=== PATIENT | female | born 1950 | race African-American/Black ===

== ENCOUNTER → 2018-04-08 | Outpatient (CLI) | payer MEDICARE, BC ==
--- NOTE | 2018-04-08 08:52 | PCVCIMAG ---
EXAM: BILATERAL CAROTID DUPLEX INDICATION: Carotid Occlusive Disease. FINDINGS: Doppler Measurements (centimeters per second): RIGHT: Peak CCA-92, Peak ECA-115, Diastolic ICA-30, Peak ICA-94, ICA/CCA Ratio-1.0. LEFT: Peak CCA-95, Peak ECA-75, Diastolic ICA-41, Peak ICA-140, ICA/CCA Ratio-1.5. RIGHT CAROTID: The carotid bulb has mild plaque. The proximal internal carotid artery shows <40% stenosis. The common carotid artery shows no significant stenosis. The external carotid artery shows no significant stenosis. LEFT CAROTID: The carotid bulb has moderate plaque. The proximal internal carotid artery shows 50% stenosis. The common carotid artery shows no significant stenosis. The external carotid artery shows no significant stenosis. Antegrade flow in both vertebral arteries. IMPRESSION: <40% stenosis of the right internal carotid artery with mild plaque. 50% stenosis of the left internal carotid artery with moderate plaque. LOC:[place] [id number]
--- NOTE | 2018-04-08 11:44 | PCVCIMAG ---
EXAM: AORTOILIAC DUPLEX INDICATION: Peripheral arterial disease previous aortobifemoral bypass. FINDINGS: AORTA: Postsurgical changes of aortobifemoral bypass appear intact. Suprarenal aorta measures maximum diameter of 2.4 cm. There is not a fusiform infrarenal aortic aneurysm. The infrarenal aorta measures maximum diameter of 2.5 cm. No aortic stenosis. The right and left iliac limbs of the bypass are patent and of normal caliber. IMPRESSION: Intact aortobifemoral bypass remains patent. No evidence of abdominal aortic aneurysm. LOC:[id number]
--- NOTE | 2018-04-08 11:53 | PCVCIMAG ---
EXAM: BILATERAL LOWER EXTREMITY ARTERIAL DUPLEX INDICATION: Peripheral Arterial Disease. Leg pain. FINDINGS: Right Leg: Common femoral and profunda femoral arteries are patent. Unga superficial femoral artery shows occlusion throughout as does the upper popliteal artery. Postsurgical changes of femoral-popliteal artery bypass also shows complete occlusion. Mid and lower popliteal artery refills and is patent. The anterior tibial, peroneal, posterior tibial arteries are patent. Left Leg: Common femoral and profunda femoral arteries are patent. Unga superficial femoral artery and popliteal artery are occluded. Postsurgical changes of femoral-popliteal artery bypass graft appear intact with satisfactory flow throughout the graft. Mid and lower popliteal artery are patent. Anterior tibial, peroneal, posterior tibial arteries are patent. IMPRESSION: Occlusion of the [place] right and left superficial femoral artery and upper popliteal arteries. Previous right femoral-popliteal artery bypass graft shows complete occlusion throughout. Previous left femoral-popliteal artery bypass graft remains patent. LOC:[id number]
--- NOTE | 2018-04-08 12:57 | PCVCIMAG ---
APPROVED REPORT Study performed: 04/08/2018 09:44:57 Exam: Stress Echocardiogram Indication: CAD , Hypertension, Hyperlipidemia Patient Location: Echo lab Stress Nurse: Nicci Powell RN Room #: 2 Status: routine Ht: 5 ft 5 in HR: 65 bpm BP: 134/78 mmHg Rhythm: NSR Medical History Medical History: CAD non obstructive, HTN, Hyperlipidemia, PAD Cardiac Risk Factors: Hyperlipidemia, HTN Previous Cardiac Procedures: cath Pretest Chest Pain Characteristics: No chest pain Exercise History: Indeterminate Procedure The patient underwent an Exercise Stress Test using the Grazyna Protocol. Blood pressure, heart rate, and EKG were monitored. An Echocardiogram was performed by assembly technician in four stages in quad fashion. At peak stress, four selected images were obtained and placed side by side with resting images for comparison. Stress Test Details Stress Test: Exercise stress testing was performed using a Grazyna protocol. HR Resting HR: 65 bpmMax Heart Rate (APMHR): 154 bpm Max HR Achieved: 173 bpmTarget HR (85% APMHR): 130 bpm % of APMHR: 112 Recovery HR: 78 bpm HR response to stress: Normal HR response to stress BP Resting BP: 134/78 mmHg Max BP: 180/80 mmHg Recovery BP: 124/60 mmHg ECG Resting ECG: Sinus Rhythm Stress ECG: Sinus Rhythm, NSSTT changes ST Change: Non-ischemic Arrhythmia: None Recovery ECG: Sinus Rhythm Recovery ST Change: Non-ischemic Recovery Arrhythmia: short run svt post-self limiting Clinical Reason for Termination: Maximal effort Stress Symptoms: Leg Fatigue Exercise duration: 7 min 02 sec Highest Stage Achieved: Stage 3: 3.4 mph at 14% grade. Exercise capacity: 10.1 METs Overall Exercise Capacity for Age: Average Scale: Sedentary Angina Score: None No complications. Stress ECG Conclusion The patient exercised according to the GRAZYNA protocol for7:02 mins; achieving a work level of 10.1 METS. The resting heart rate of 65 bpm carley to a maximum heart rate of 173 bpm. This value represent 112% of the maximal, age-predicted heart rate. The resting blood pressure of 134/78 mmHg, carley to a maximum blood pressure of 180/80mmHg. The exercise test was stopped due to fatigue . Pre-Stress Echo The resting Echocardiogram showed normal left ventricular contractility with an estimated Ejection Fraction of about 55-60%. Normal wall motion in all segments on baseline images. Post-Stress Echo The stress Echocardiogram showed normal left ventricular contractility with an estimated Ejection Fraction of about 65-70%. Normal augmentation of wall motion in all segments on post stress images. Clinical No clinical or ECG evidence for ischemia. Conclusion Clinical Response: Non-ischemic Exercise Capacity: Average Stress ECG Response: Non-ischemic Stress Echo Images: Non-ischemic No echocardiographic evidence for exercise induced ischemia. No clinical, EKG or echocardiographic evidence for ischemia. Normal stress echocardiogram with maximal exercise stress. Mild aortic stenosis with a peak gradient of 22 mmHg and a mean gradient of 11 mmHg. <Conclusion> No echocardiographic evidence for exercise induced ischemia. No clinical, EKG or echocardiographic evidence for ischemia. Normal stress echocardiogram with maximal exercise stress. Mild aortic stenosis with a peak gradient of 22 mmHg and a mean gradient of 11 mmHg.
== END | disposition home or self-care (01) ==
LOC: PCVCIMAG 07:45
PROVIDERS: ATTEND Internal Medicine Cardiovascular Disease
DX: Z51.81 Encounter for therapeutic drug level monitoring (principal); I73.9 Peripheral vascular disease, unspecified; I65.23 Occlusion and stenosis of bilateral carotid arteries; I10 Essential (primary) hypertension; I25.810 Atherosclerosis of coronary artery bypass graft(s) without angina pectoris; I25.9 Chronic ischemic heart disease, unspecified; E78.5 Hyperlipidemia, unspecified; I77.9 Disorder of arteries and arterioles, unspecified; Z79.01 Long term (current) use of anticoagulants
CPT/HCPCS: 85610; 93325; 93351; 93880; 93925; 93978

== ENCOUNTER → 2018-04-11 | Outpatient (CLI) | payer MEDICARE, BC | END | disposition home or self-care (01) | LOC: PCVCCLINIC 13:50 | PROVIDERS: ATTEND Internal Medicine Cardiovascular Disease | DX: Z51.81 Encounter for therapeutic drug level monitoring (principal); I10 Essential (primary) hypertension; I25.810 Atherosclerosis of coronary artery bypass graft(s) without angina pectoris; E78.5 Hyperlipidemia, unspecified; Z79.01 Long term (current) use of anticoagulants | CPT/HCPCS: 85610 ==

== ENCOUNTER → 2018-04-18 | Outpatient (CLI) | payer MEDICARE, BC | END | disposition home or self-care (01) | LOC: PCVCCLINIC 15:14 | PROVIDERS: ATTEND Internal Medicine Cardiovascular Disease | DX: Z51.81 Encounter for therapeutic drug level monitoring (principal); I10 Essential (primary) hypertension; I25.810 Atherosclerosis of coronary artery bypass graft(s) without angina pectoris; E78.5 Hyperlipidemia, unspecified; Z79.01 Long term (current) use of anticoagulants | CPT/HCPCS: 85610 ==

== ENCOUNTER → 2018-04-24 | Outpatient (CLI) | payer MEDICARE, BC | END | disposition home or self-care (01) | LOC: PCVCCLINIC 14:49 | PROVIDERS: ATTEND Internal Medicine Cardiovascular Disease | DX: Z51.81 Encounter for therapeutic drug level monitoring (principal); I10 Essential (primary) hypertension; I25.810 Atherosclerosis of coronary artery bypass graft(s) without angina pectoris; E78.5 Hyperlipidemia, unspecified; Z79.01 Long term (current) use of anticoagulants | CPT/HCPCS: 85610 ==